=== PATIENT | female | born 1960 | race Caucasian/White ===

== ENCOUNTER 2024-10-18 13:52 | Outpatient (CLI) | payer MEDICARE, BC, SELFPAY | END 2024-10-18 13:53 | disposition home or self-care (01) | LOC: NFLDREF 10-21 07:15 | PROVIDERS: PCP Physician Assistant Medical; Referring Provider Physician Assistant Medical; Visit Provider Obstetrics & Gynecology | DX: R33.9 Retention of urine, unspecified (principal); R32 Unspecified urinary incontinence | CPT/HCPCS: 87086 ==